=== PATIENT | male | born 1955 | race Caucasian/White ===

== ENCOUNTER 2017-03-21 09:59 | Emergency (ER) | payer OTHER | END 2017-03-21 10:51 | disposition home or self-care (01) | LOC: E/R 09:59 | DX: I10 Essential (primary) hypertension (principal) | CPT/HCPCS: 99283; Z7502 ==

== ENCOUNTER 2018-02-26 10:40 | Emergency (ER) | payer OTHER | END 2018-02-26 12:07 | disposition home or self-care (01) | LOC: FTE 10:40 | DX: K21.9 Gastro-esophageal reflux disease without esophagitis (principal) | CPT/HCPCS: 99282-25; Z7502 ==